=== PATIENT | male | born 1990 | race Caucasian/White ===

== ENCOUNTER 2017-12-22 14:52 | Emergency (ER) | payer MEDICAID ==
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
[2017-12-22] MEDS ORDERED: OXYCODONE/APAP 5/325 TAB PO ONE (15:26)
[2017-12-22 16:34] VITALS: BP 138/73
== END 2017-12-22 16:33 | disposition home or self-care (01) ==
DX: S52.612K Displaced fracture of left ulna styloid process, subsequent encounter for closed fracture with nonunion (principal)
CPT/HCPCS: A4565

== ENCOUNTER → 2018-01-13 | Outpatient (CLI) | payer MEDICAID | LOC: BMCIMAGING 10:44 | PROVIDERS: ATTEND Orthopaedic Surgery Hand Surgery | DX: S52.615D Nondisplaced fracture of left ulna styloid process, subsequent encounter for closed fracture with routine healing (principal) ==

== ENCOUNTER → 2018-02-11 | Outpatient (CLI) | payer MEDICAID | LOC: BMCIMAGING 15:30 | PROVIDERS: ATTEND Orthopaedic Surgery Hand Surgery | DX: S52.615G Nondisplaced fracture of left ulna styloid process, subsequent encounter for closed fracture with delayed healing (principal) ==